=== PATIENT | male | born 2000 | race Caucasian/White ===

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

== ENCOUNTER → 2020-07-02 | Outpatient (REF) | payer OTHER | LOC: M LAB REF 12:17 | PROVIDERS: ATTEND Physician Assistant | DX: L98.9 Disorder of the skin and subcutaneous tissue, unspecified (principal) ==

== ENCOUNTER 2024-09-27 13:47 | Emergency (ER) | payer BC, OTHER ==
[~2024-09-27] VITALS: Ht 188 cm; Wt 86.6 kg
[2024-09-27 13:52] VITALS: BP 132/80; TEMP 97.6; O2SAT 97
[2024-09-27] MEDS ORDERED: AMOX875T2 PO (18:11)
[2024-09-27] MEDS: AUGMENTIN 875 MG TAB PO ONE (18:15)
[2024-09-27] MEDS: BOOSTRIX VACCINE (TETANUS/DIPHTH/ACEL. PERTUSSIS) 0.5ML SYR IM.IMMUN ONE (18:15)
== END 2024-09-27 18:26 | disposition home or self-care (01) ==
LOC: M ED 13:47
DX: S61.442A Puncture wound with foreign body of left hand, initial encounter (principal); W54.0XXA Bitten by dog, initial encounter; Y92.9 Unspecified place or not applicable; Y93.89 Activity, other specified; Y99.9 Unspecified external cause status; Z79.2 Long term (current) use of antibiotics; Z23 Encounter for immunization